=== PATIENT | female | born 1955 | race African-American/Black ===

== ENCOUNTER 2018-02-13 11:45 | Emergency (ER) | payer MEDICARE ==
[2018-02-13] MEDS ORDERED: Ibuprofen 200 MG TAB ONE (12:04)
--- NOTE | 2018-02-13 17:17 | RAD ---
CHEST TWO VIEWS: 02/13/18 Comparison is made with the prior study of 02/15/16. The heart size remains normal. There are no congestive changes or pleural effusions. No focal infilt rates were appreciated. The trachea is midline. IMPRESSION: No acute thoracic findings. POS: HOME
== END 2018-02-13 12:30 | disposition home or self-care (01) ==
LOC: BURERS 11:45
DX: J06.9 Acute upper respiratory infection, unspecified (principal); J44.9 Chronic obstructive pulmonary disease, unspecified; F41.9 Anxiety disorder, unspecified; Z79.899 Other long term (current) drug therapy
CPT/HCPCS: 71046

== ENCOUNTER 2019-01-11 16:40 | Emergency (ER) | payer MEDICARE ==
[2019-01-11] MEDS ORDERED: methylPREDNISolone Sod Succ/PF 125 MG/2 ML VIAL ONE (17:03)
== END 2019-01-11 17:13 | disposition home or self-care (01) ==
LOC: BURERS 16:40
DX: J06.9 Acute upper respiratory infection, unspecified (principal); Z79.891 Long term (current) use of opiate analgesic; Z79.899 Other long term (current) drug therapy
CPT/HCPCS: 96372; J2930

== ENCOUNTER 2020-12-16 10:27 | Inpatient (IN) | payer MEDICARE ==
[2020-12-16 10:49] LABS: #Monocytes 0.5 thou/uL (0.11-0.59); #Neutrophils 3.7 thou/uL (1.40-6.50); %Basophils 0.3 % (0.0-1.0); %Eosinophils 0.1 % (0.0-10.0); %Lymphocytes 18.6 % (21.0-51.0); %Neutrophils 71.9 % (42.0-75.0); Hemoglobin 11.6 g/dL (12.0-16.0); Mean Corpuscular HGB CONC 30.7 g/dL (32.0-36.0); Mean Corpuscular Hemoglobin 26.6 pg (27.0-31.0); Mean Corpuscular Volume 86.7 fL (78.0-98.0); Mean Platelet Volume 9.3 fL (7.4-10.4); Platelet Count 169 thou/uL (130-400); RBC Distribution Width 13.9 % (11.5-14.5); Red Blood Cell (RBC) Count 4.37 mill/uL (4.20-5.40); White Blood Cell (WBC) Count 5.1 thou/uL (4.8-10.8)
[2020-12-16 11:06] LABS: ALT (SGPT) 32 U/L (8-55); AST (SGOT) 51 U/L (5-34); Albumin 3.6 g/dL (3.4-4.8); Alkaline Phosphatase 36 U/L (40-110); Anion Gap 17 mmol/L (10-20); BUN (Urea Nitrogen) 13 mg/dL (9.8-20.1); Bilirubin, Total 0.7 mg/dL (0.2-1.2); Calc. Creatinine Clearance 0 mL/min (70-130); Calcium 8.5 mg/dL (7.8-10.44); Carbon Dioxide 28 mmol/L (23-31); Chloride 96 mmol/L (98-107); Globulin 4.5 g/dL (2.4-3.5); Glucose 103 mg/dL (80-115); Lipase 35 U/L (8-78); Potassium 3.1 mmol/L (3.5-5.1); Protein, Total 8.1 g/dL (5.8-8.1); Sodium 138 mmol/L (136-145)
[2020-12-16] MEDS ORDERED: Hyoscyamine Sulfate SL 0.125 mg Tablet ONE (12:12)
[2020-12-16] MEDS ORDERED: Ondansetron PF 4 MG/2 ML Vial ONE (12:12)
[2020-12-16] MEDS ORDERED: Dexamethasone 10 MG/ML VIAL ONE (12:12)
[2020-12-16 13:08] LABS: SARS-CoV-2 NAA Rapid Test DETECTED (NotDetected)
[2020-12-16] MEDS ORDERED: Acetaminophen 325 MG TAB PO PRN (14:00)
[2020-12-16 14:50] VITALS: BMI 47.4
--- NOTE | 2020-12-16 15:23 | RAD ---
PORTABLE CHEST: 12/16/20 An AP portable film at 1105 is compared with a 02/13/18 study. The heart is a bit larger today than before. The vessels are congested. There are also some confluent infiltrates present, particularly in the left lower lobe and to a lesser extent the right. Knowing t he patient is COVID positive, this probably represents infection on top of some congestive change. I do not see large effusions. Mediastinum itself was unremarkable. IMPRESSION: 1. Congestive changes. 2. Patchy parenchymal areas, left more than right. The possibility of superimposed infection is raised, knowing the patient is COVID positive. Alternatively, this could just be pulmonary edema but I feel this is less likely. POS: HOME
[2020-12-16] MEDS ORDERED: Loperamide HCl 2 MG CAP PO PRN ×2 (16:22)
[2020-12-16] MEDS ORDERED: Albuterol Sulfate 2.5 mg/3 ml Neb EZPAP PRN (16:28)
[2020-12-16] MEDS: Dextrose 5 %-0.45 % NaCl 1,000 ML IV SCH ×2 (16:40→21:27)
[2020-12-16] MEDS: Potassium Chloride 10 MEQ TAB PO SCH (17:25)
[2020-12-16] MEDS: HYDROcodone/Acetaminophen 10/325 mg Tablet PO PRN ×2 (17:26→23:44)
[2020-12-16] MEDS: Guaifenesin DM 100-10/5 ML UDCUP PO PRN (17:29)
[2020-12-16] MEDS: clonazePAM 0.5 MG TAB PO SCH (21:26)
[2020-12-16] MEDS: Famotidine 20 MG TAB PO SCH (21:26)
[2020-12-16] MEDS: Loratadine 10 MG TAB PO SCH (21:26)
[2020-12-17] MEDS: Albuterol 200 PUFF (6.7GM INHALER) INH PRN (05:47)
[2020-12-17] MEDS: Dextrose 5 %-0.45 % NaCl 1,000 ML IV SCH ×2 (06:36→18:35)
[2020-12-17 06:38] LABS: ALT (SGPT) 29 U/L (8-55); AST (SGOT) 37 U/L (5-34); Albumin 3.3 g/dL (3.4-4.8); Alkaline Phosphatase 30 U/L (40-110); Anion Gap 15 mmol/L (10-20); BUN (Urea Nitrogen) 12 mg/dL (9.8-20.1); Bilirubin, Total 0.4 mg/dL (0.2-1.2); Calc. Creatinine Clearance 153 mL/min (70-130); Calcium 8.2 mg/dL (7.8-10.44); Carbon Dioxide 25 mmol/L (23-31); Chloride 100 mmol/L (98-107); Glucose 151 mg/dL (80-115); Potassium 3.5 mmol/L (3.5-5.1); Protein, Total 7.3 g/dL (5.8-8.1); Sodium 136 mmol/L (136-145)
[2020-12-17 06:43] LABS: Hemoglobin 10.4 g/dL (12.0-16.0); Mean Corpuscular HGB CONC 31.6 g/dL (32.0-36.0); Mean Corpuscular Hemoglobin 27.1 pg (27.0-31.0); Mean Corpuscular Volume 85.6 fL (78.0-98.0); Mean Platelet Volume 10.1 fL (7.4-10.4); Platelet Count 208 thou/uL (130-400); RBC Distribution Width 13.6 % (11.5-14.5); Red Blood Cell (RBC) Count 3.84 mill/uL (4.20-5.40); White Blood Cell (WBC) Count 6.2 thou/uL (4.8-10.8)
[2020-12-17] MEDS: HYDROcodone/Acetaminophen 10/325 mg Tablet PO PRN ×2 (06:44→21:09)
[2020-12-17 07:15] LABS: Band 3 % (5-11); Hypochromia SLIGHT = 6-15 cells (100X) (0-5/hpf); Large Platelets SLIGHT; Lymphocytes 9 % (21-51); MDiff Complete? YES; Monocytes 9 % (0-10); Neutrophil 74 % (42-75); Platelet Morphology Comment Appears Adequate; Reactive Lymphocytes 5 % (0-10)
[2020-12-17] MEDS ORDERED: Enoxaparin Sodium 40 MG/0.4 ML SYRINGE ONE (08:00)
[2020-12-17] MEDS ORDERED: FLU VACC QS2020-21(6MOS UP)/PF 60 MCG/0.5 ML SYRINGE IM ONE (09:00)
[2020-12-17] MEDS ORDERED: Enoxaparin Sodium 40 MG/0.4 ML SYRINGE SC SCH (09:00)
[2020-12-17] MEDS: Potassium Chloride 10 MEQ TAB PO SCH ×2 (09:41→18:35)
[2020-12-17] MEDS: Famotidine 20 MG TAB PO SCH ×2 (09:42→21:09)
[2020-12-17] MEDS: Cholecalciferol (Vitamin D3) 5,000 UNITS CAPSULE PO SCH (09:42)
[2020-12-17] MEDS: Dexamethasone 4 mg/ml Vial SLOW IVP SCH (09:42)
--- NOTE | 2020-12-17 12:21 | RAD ---
PORTABLE CHEST: Date: 12/17/2020 An AP portable film at 0817 hours is compared with the 12/16/2020 study. The findings are fairly similar. The congestion of the vessels seems slightly better. The patchy area s in the lung bases are approximately the same. There are no large effusions. The heart size remains enlarged. IMPRESSION: Only slight changes since yesterday. Vessels seem less prominent. Infiltrates about the same. POS: HOME
[2020-12-17] MEDS ORDERED: Enoxaparin Sodium 100 MG/ML SYRINGE SC SCH (21:00)
[2020-12-17] MEDS: Guaifenesin DM 100-10/5 ML UDCUP PO PRN (21:08)
[2020-12-17] MEDS: Loratadine 10 MG TAB PO SCH (21:09)
[2020-12-17] MEDS: clonazePAM 0.5 MG TAB PO SCH (21:09)
--- NOTE | 2020-12-17 23:58 | HP ---
CHIEF COMPLAINT: Cough and shortness of breath. HISTORY OF PRESENT ILLNESS: The patient is a 65-year-old female who approximately 12 days ago began having cough, shortness of breath, fevers and was seen at 10 days ago in her Urgent Care in [place], was diagnosed COVID positive and treated conservatively with Tessalon Perles and symptom management. The patient continued to have cough, shortness of breath and began having diarrhea three days ago. She had malaise and back to the point where she was so short of breath that she called EMS on the day of admission. She was evaluated by EMS and found to have O2 sats of 88% on room air, was sent to the emergency room. In the emergency room, the patient was found to have COVID pneumonia with hypoxia requiring hospital admission. PAST MEDICAL HISTORY: Significant for chronic back pain, on chronic Bryan. ALLERGIES: THE PATIENT REPORTS ALLERGIES TO CODEINE. PAST SURGICAL HISTORY: Significant for history of knee surgery as well as a stimulator that was placed in her back for chronic back pain. SOCIAL HISTORY: The patient denies alcohol or social drug use. PSYCHIATRIC HISTORY: The patient has no significant psychiatric history. REVIEW OF SYSTEMS: Other than the symptoms in the HPI, the patient denies any dysuria. No hematuria or change in urinary frequency. The patient has chronic back pain, which is at its baseline. The patient has had no emesis, but has had frequent loose stools without melena or hematochezia. The patient denies chest pain other than pain with cough, which is productive yellow to clear sputum. The patient had no significant weight loss nor weight gain. PHYSICAL EXAMINATION: GENERAL: female, alert and oriented x3 with slight tachypnea. VITAL SIGNS: O2 saturation was 88% on room air, was 96% on 2 L. Blood pressure was 138/68, respiratory rate was 22. HEENT: Atraumatic and normocephalic. Extraocular movements are intact. Pupils are equal, round, and react to light and accommodation. Oropharynx and mucous membranes are moist. No exudate, discharge, or lesions. NECK: Supple. No mass palpated. No bruits auscultated. CHEST: Showed rales at the bases bilaterally with diffuse rhonchi. HEART: Rapid, but regular rate and rhythm. ABDOMEN: Obese, soft, nontender, nondistended. No masses are palpated. EXTREMITIES: Showed diffuse swelling without obvious edema. The patient was morbidly obese. LABORATORY DATA: CBC was within normal limits. Comprehensive metabolic panel showed no significant findings. Chest x-ray showed congestive changes with patchy parenchymal areas, left more than right, consistent with COVID pneumonia. ASSESSMENT AND PLAN: 1. COVID pneumonia. The patient is approximately 12 days since onset of symptoms. She is past the period of effective treatment either remdesivir, convalescent plasma, nor monoclonal antibodies. We will start the patient on IV steroids and oxygen with albuterol inhalers p.r.n. 2. Hypoxia as above. We will treat with oxygen as needed. 3. Deep venous thrombosis prophylaxis. The patient is at risk for DVT with a stationary bed status as well as COVID pneumonia. We will treat with Lovenox 40 mg subcu q.12 hours. We will treat prophylactically with p.o. Protonix. 4. Disposition. Plan is the patient to be discharged to home hopefully within the next couple of days, she can be transitioned to oral steroids if she improves. Job ID: [id number]
[2020-12-18] MEDS: Zolpidem Tartrate 5 MG TAB PO PRN ×2 (00:09→22:20)
[2020-12-18] MEDS: Cholecalciferol (Vitamin D3) 5,000 UNITS CAPSULE PO SCH (08:57)
[2020-12-18] MEDS: Famotidine 20 MG TAB PO SCH ×2 (08:57→21:15)
[2020-12-18] MEDS: Enoxaparin Sodium 40 MG/0.4 ML SYRINGE SC SCH ×2 (08:57→21:15)
[2020-12-18] MEDS: Potassium Chloride 10 MEQ TAB PO SCH ×2 (08:57→17:26)
[2020-12-18] MEDS: Dexamethasone 4 mg/ml Vial SLOW IVP SCH (08:57)
[2020-12-18] MEDS: Guaifenesin DM 100-10/5 ML UDCUP PO PRN ×2 (08:59→21:15)
[2020-12-18] MEDS: HYDROcodone/Acetaminophen 10/325 mg Tablet PO PRN ×2 (09:20→22:20)
[2020-12-18] MEDS: Albuterol 200 PUFF (6.7GM INHALER) INH PRN (09:28)
[2020-12-18 09:57] LABS: ALT (SGPT) 40 U/L (8-55); AST (SGOT) 35 U/L (5-34); Albumin 3.4 g/dL (3.4-4.8); Alkaline Phosphatase 33 U/L (40-110); Anion Gap 16 mmol/L (10-20); BUN (Urea Nitrogen) 12 mg/dL (9.8-20.1); Bilirubin, Total 0.6 mg/dL (0.2-1.2); Calc. Creatinine Clearance 145 mL/min (70-130); Calcium 8.8 mg/dL (7.8-10.44); Carbon Dioxide 25 mmol/L (23-31); Chloride 103 mmol/L (98-107); Glucose 141 mg/dL (80-115); Potassium 3.4 mmol/L (3.5-5.1); Protein, Total 7.4 g/dL (5.8-8.1); Sodium 141 mmol/L (136-145)
[2020-12-18 10:06] LABS: #Basophils 0.1 thou/uL (0.0-0.2); #Lymphocytes 1.5 thou/uL (1.20-3.40); #Monocytes 0.5 thou/uL (0.11-0.59); #Neutrophils 6.8 thou/uL (1.40-6.50); %Basophils 0.6 % (0.0-1.0); %Eosinophils 0.1 % (0.0-10.0); %Lymphocytes 16.9 % (21.0-51.0); %Monocytes 5.5 % (0.0-10.0); %Neutrophils 76.9 % (42.0-75.0); Hemoglobin 10.7 g/dL (12.0-16.0); Mean Corpuscular HGB CONC 31.1 g/dL (32.0-36.0); Mean Corpuscular Hemoglobin 26.9 pg (27.0-31.0); Mean Corpuscular Volume 86.4 fL (78.0-98.0); Mean Platelet Volume 8.9 fL (7.4-10.4); Platelet Count 261 thou/uL (130-400); RBC Distribution Width 13.8 % (11.5-14.5); Red Blood Cell (RBC) Count 3.98 mill/uL (4.20-5.40); White Blood Cell (WBC) Count 8.8 thou/uL (4.8-10.8)
[2020-12-18] MEDS ORDERED: Iopamidol 370 76% 100 ML VIAL ONE (12:09)
[2020-12-18] MEDS ORDERED: Bisacodyl 5 MG TAB PO PRN (18:21)
--- NOTE | 2020-12-18 20:45 | CT ---
CT ANGIO OF THE CHEST: Date: 12-18-[address] of the chest was done for evaluation of this patient with Covid pneumonia who has an elevat ed D-Dimer. FINDINGS: A bolus of IV contrast was given. There is reasonable opacification of the right and left pulmonary a rteries and immediate lobar branches. Mid to distal branches are not seen well in this patient, parti ally due to body habitus. Emboli in the more distal areas would be missed. There is no evidence of th e emboli in the larger branches. There is no sign of aortic aneurysm or dissection. No pericardial ef fusion was seen. The lungs show multiple patchy ground glass infiltrates consistent with the diagnosi s of Covid. There are no large effusions. Scans into the upper part of the abdomen showed no acute ch anges there. IMPRESSION: 1. Medium sensitivity study showing no evidence of pulmonary embolism in the right and left pulmonary arteries and the immediate lobar branches. Smaller emboli distally would be missed. 2. Covid pneumonia, all lobes. POS: HOME
[2020-12-18] MEDS: Loratadine 10 MG TAB PO SCH (21:15)
[2020-12-18] MEDS: clonazePAM 0.5 MG TAB PO SCH (21:15)
[2020-12-19] MEDS: Cholecalciferol (Vitamin D3) 5,000 UNITS CAPSULE PO SCH (09:07)
[2020-12-19] MEDS: Potassium Chloride 10 MEQ TAB PO SCH ×2 (09:07→16:38)
[2020-12-19] MEDS: Famotidine 20 MG TAB PO SCH ×2 (09:07→20:32)
[2020-12-19] MEDS: Enoxaparin Sodium 40 MG/0.4 ML SYRINGE SC SCH ×2 (09:07→20:32)
[2020-12-19] MEDS: Dexamethasone 4 mg/ml Vial SLOW IVP SCH (09:08)
[2020-12-19] MEDS: clonazePAM 0.5 MG TAB PO SCH (20:32)
[2020-12-19] MEDS: Zolpidem Tartrate 5 MG TAB PO PRN (20:32)
[2020-12-19] MEDS: Loratadine 10 MG TAB PO SCH (20:32)
[2020-12-19] MEDS: Guaifenesin DM 100-10/5 ML UDCUP PO PRN (20:32)
[2020-12-19] MEDS: HYDROcodone/Acetaminophen 10/325 mg Tablet PO PRN (20:32)
[2020-12-20 04:52] LABS: #Basophils 0.1 thou/uL (0.0-0.2); #Lymphocytes 1.6 thou/uL (1.20-3.40); #Monocytes 0.5 thou/uL (0.11-0.59); #Neutrophils 4.7 thou/uL (1.40-6.50); %Basophils 1.2 % (0.0-1.0); %Eosinophils 0.1 % (0.0-10.0); %Lymphocytes 23.2 % (21.0-51.0); %Monocytes 7.5 % (0.0-10.0); Hemoglobin 9.6 g/dL (12.0-16.0); Mean Corpuscular HGB CONC 31.2 g/dL (32.0-36.0); Mean Corpuscular Hemoglobin 27.1 pg (27.0-31.0); Mean Corpuscular Volume 86.7 fL (78.0-98.0); Mean Platelet Volume 8.7 fL (7.4-10.4); Platelet Count 263 thou/uL (130-400); RBC Distribution Width 13.2 % (11.5-14.5); Red Blood Cell (RBC) Count 3.56 mill/uL (4.20-5.40); White Blood Cell (WBC) Count 6.9 thou/uL (4.8-10.8)
[2020-12-20 05:17] LABS: ALT (SGPT) 54 U/L (8-55); AST (SGOT) 30 U/L (5-34); Albumin 3.1 g/dL (3.4-4.8); Alkaline Phosphatase 30 U/L (40-110); Anion Gap 14 mmol/L (10-20); BUN (Urea Nitrogen) 12 mg/dL (9.8-20.1); Bilirubin, Total 0.4 mg/dL (0.2-1.2); CRP (Inflammatory) 1.65 mg/dL (= or < 0.5); Calc. Creatinine Clearance 157 mL/min (70-130); Calcium 8.5 mg/dL (7.8-10.44); Carbon Dioxide 26 mmol/L (23-31); Chloride 104 mmol/L (98-107); Globulin 3.4 g/dL (2.4-3.5); Glucose 162 mg/dL (80-115); Potassium 3.8 mmol/L (3.5-5.1); Protein, Total 6.5 g/dL (5.8-8.1); Sodium 140 mmol/L (136-145)
[2020-12-20] MEDS: Enoxaparin Sodium 40 MG/0.4 ML SYRINGE SC SCH (08:06)
[2020-12-20] MEDS: Cholecalciferol (Vitamin D3) 5,000 UNITS CAPSULE PO SCH (08:07)
[2020-12-20] MEDS: Famotidine 20 MG TAB PO SCH (08:07)
[2020-12-20] MEDS: Potassium Chloride 10 MEQ TAB PO SCH ×2 (08:07→17:10)
[2020-12-20] MEDS: Dexamethasone 4 mg/ml Vial SLOW IVP SCH (08:08)
[2020-12-20 17:21] VITALS: BP 160/80; TEMP 98.6
== END 2020-12-20 18:18 | disposition home or self-care (01) | DRG 177 ==
LOC: BURERS 10:27 → BURMED 12:25
PROVIDERS: ADMIT Family Medicine; ATTEND Family Medicine
DX: U07.1 COVID-19 (principal); J12.82 Pneumonia due to coronavirus disease 2019; A09 Infectious gastroenteritis and colitis, unspecified; G89.29 Other chronic pain; M54.9 Dorsalgia, unspecified; Z88.5 Allergy status to narcotic agent
CPT/HCPCS: 0240U; 36415; 71045; 71275; 80053; 82728; 83690; 83880; 84484; 85025; 85379; 86140; 94760; 96374; 96375; J1100; J1650; J2405; Q9967